=== PATIENT | female | born 1990 | race Caucasian/White ===

== ENCOUNTER 2017-10-29 16:12 | Emergency (ER) | payer OTHER ==
[~2017-10-29] VITALS: Ht 157.4 cm; Wt 112.5 kg
[~2017-10-29 16:12] MED LIST: BACTRIM DS 8001 TA1 PO; CLINDAMYCIN HC300 MG PO; DICLEGIS DR 101 EACH PO; ESCITALOPRAM OX10 MG PO; MACROBID100 M1 PO; MOTRIN600 MG PO; MOTRIN800 MG PO; NKHM; NORMODYNE,TRAN100 MG PO; PRENATAL1 TA1 PO; ZOLOFT50 MG PO
[2017-10-29] MEDS ORDERED: LAMICTAL100 MG PO (16:25)
[2017-10-29] MEDS ORDERED: EFFEXOR XR75 M1 PO (16:25)
[2017-10-29 16:46] LABS: BASO # 0.1 10*3/uL (0.0-0.1); BASO % 0.4 % (0.0-1.0); EOS # 0.2 10*3/uL (0.0-0.4); EOS % 1.5 % (1.0-4.0); HEMATOCRIT 44.5 % (37.0-47.0); LYMPH # 1.3 10*3/uL (1.3-4.4); LYMPH % 10.1 % (27.0-41.0); MEAN CELL VOLUME 87.8 fl (81.0-99.0); MEAN CORPUSCULAR HGB 29.6 pg (27.0-31.0); MEAN CORPUSCULAR HGB CONC 33.7 g/dl (33.0-37.0); MEAN PLATELET VOLUME 11.5 fl (9.6-12.3); MONO # 0.5 10*3/uL (0.1-1.0); MONO % 4.1 % (3.0-9.0); NEUT # 10.7 10*3/uL (2.3-7.9); NEUT % 83.7 % (47.0-73.0); PLATELET COUNT AUTOMATED 285 10*3/uL (130-400); RED BLOOD COUNT 5.07 10*6/uL (4.10-5.10); RED CELL DISTRI WIDTH 13.2 % (0-14.5); WHITE BLOOD COUNT 12.8 10*3/uL (4.8-10.8)
[2017-10-29 17:21] LABS: BILIRUBIN NEGATIVE (NEGATIVE); BLOOD NEGATIVE (NEGATIVE); CLARITY CLEAR (CLEAR); COLOR YELLOW (YELLOW); GLUCOSE NEGATIVE (NEGATIVE); KETONE NEGATIVE (NEGATIVE); LEUKO ESTERASE NEGATIVE (NEGATIVE); NITRITE NEGATIVE (NEGATIVE); SPECIFIC GRAVITY 1.015 (1.005-1.030); UROBILINOGEN 0.2 E.U./dl (0.2-1.0)
[2017-10-29 17:28] LABS: BACTERIA TRACE; EPITHELIAL CELLS 25-30; RBC 0-2 rbc/hpf (0-2); WBC 0-2 wbc/hpf (0-5)
[2017-10-29 17:50] LABS: ALBUMIN 3.5 gm/dl (3.1-4.5); ALKALINE PHOSPHATASE 83 U/L (45-117); BUN 13 mg/dl (7-24); CHLORIDE 105 mmol/L (98-107); CREATININE 0.74 mg/dL (0.55-1.02); LIPASE 136 U/L (73-393); POTASSIUM 3.6 mmol/L (3.5-5.1); SGOT/AST 15 IU/L (3-35); SGPT/ALT 26 U/L (12-78); SODIUM 138 mmol/L (136-145); TOTAL PROTEIN 7.6 gm/dL (6.4-8.2)
[2017-10-29] MEDS ORDERED: ZOFRAN ODT4 MG SL (18:06)
== END 2017-10-29 18:17 | disposition home or self-care (01) ==
LOC: ED 16:12
PROVIDERS: Emergency Medicine; Physician Assistant
DX: K52.9 Noninfective gastroenteritis and colitis, unspecified (principal); R10.13 Epigastric pain; R10.11 Right upper quadrant pain; Z79.899 Other long term (current) drug therapy; Z88.1 Allergy status to other antibiotic agents; Z88.8 Allergy status to other drugs, medicaments and biological substances

== ENCOUNTER → 2018-02-05 | Outpatient (CLI) | payer OTHER ==
[~2018-02-05] MED LIST changes: +BUPROPION SR100 MG PO; +EFFEXOR XR75 M1 PO; +LAMICTAL100 MG PO; +TRILEPTAL300 MG PO; +ZOFRAN ODT4 MG SL
== END | disposition home or self-care (01) ==
LOC: US 01-29 13:00
DX: N93.9 Abnormal uterine and vaginal bleeding, unspecified (principal)

== ENCOUNTER → 2018-06-25 | Outpatient (CLI) | payer OTHER | END | disposition home or self-care (01) | LOC: US 11:48 | DX: Z34.82 Encounter for supervision of other normal pregnancy, second trimester (principal); Z3A.22 22 weeks gestation of pregnancy ==

== ENCOUNTER 2019-03-05 16:49 | Emergency (ER) | payer OTHER ==
[~2019-03-05] VITALS: Ht 157.4 cm; Wt 104.4 kg
[2019-03-05 17:35] LABS: BASO # 0.1 10*3/uL (0.0-0.1); BASO % 0.5 % (0.0-1.0); EOS # 0.6 10*3/uL (0.0-0.4); EOS % 6.3 % (1.0-4.0); HEMOGLOBIN 13.9 g/dl (12.0-16.0); LYMPH # 2.9 10*3/uL (1.3-4.4); LYMPH % 29.3 % (27.0-41.0); MEAN CELL VOLUME 95.8 fl (81.0-99.0); MEAN CORPUSCULAR HGB CONC 32.3 g/dl (33.0-37.0); MEAN PLATELET VOLUME 11.1 fl (9.6-12.3); MONO # 0.5 10*3/uL (0.1-1.0); MONO % 5.3 % (3.0-9.0); NEUT # 5.7 10*3/uL (2.3-7.9); NEUT % 58.3 % (47.0-73.0); PLATELET COUNT AUTOMATED 278 10*3/uL (130-400); RED BLOOD COUNT 4.49 10*6/uL (4.10-5.10); RED CELL DISTRI WIDTH 12.6 % (0-14.5); WHITE BLOOD COUNT 9.8 10*3/uL (4.8-10.8)
[2019-03-05 17:53] LABS: ALBUMIN 3.1 gm/dl (3.1-4.5); ALKALINE PHOSPHATASE 76 U/L (45-117); BUN 9 mg/dl (7-24); CHLORIDE 107 mmol/L (98-107); CREATININE 0.79 mg/dL (0.55-1.02); POTASSIUM 3.7 mmol/L (3.5-5.1); SGOT/AST 11 IU/L (3-35); SGPT/ALT 21 U/L (12-78); SODIUM 138 mmol/L (136-145); TOTAL PROTEIN 7.2 gm/dL (6.4-8.2)
[2019-03-05] MEDS ORDERED: DOXYCYCLINE100 M3 PO (18:18)
[2019-03-05] MEDS ORDERED: IBUPROFEN600 MG PO (18:18)
== END 2019-03-05 19:00 | disposition home or self-care (01) ==
LOC: ED 16:49
PROVIDERS: Physician Assistant
DX: L03.116 Cellulitis of left lower limb (principal); Z79.899 Other long term (current) drug therapy; Z88.1 Allergy status to other antibiotic agents; Z86.14 Personal history of Methicillin resistant Staphylococcus aureus infection

== ENCOUNTER 2019-06-20 18:13 | Emergency (ER) | payer OTHER ==
[~2019-06-20] VITALS: Ht 157.4 cm; Wt 110.7 kg
[~2019-06-20 18:13] MED LIST changes: +DOXYCYCLINE100 M3 PO; +IBUPROFEN600 MG PO
[2019-06-20] MEDS ORDERED: AMOXICILLIN500 M2 PO (19:45)
== END 2019-06-20 19:58 ==
LOC: ED 18:13
DX: J02.0 Streptococcal pharyngitis (principal); I10 Essential (primary) hypertension; Z88.1 Allergy status to other antibiotic agents; Z79.899 Other long term (current) drug therapy

== ENCOUNTER 2020-02-11 21:47 | Emergency (ER) | payer OTHER ==
[~2020-02-11] VITALS: Ht 157.4 cm; Wt 108.9 kg
[~2020-02-11 21:47] MED LIST changes: +AMOXICILLIN500 M2 PO
[2020-02-11] MEDS ORDERED: ARIPIPRAZOLE10 MG PO (21:53)
[2020-02-11] MEDS ORDERED: MIRTAZAPINE7.5 MG PO (21:54)
[2020-02-11] MEDS ORDERED: ESCITALOPRAM OX20 MG PO (21:54)
[2020-02-11 22:20] LABS: CLARITY CLOUDY (CLEAR); COLOR YELLOW (YELLOW)
[2020-02-11 22:22] LABS: BILIRUBIN NEGATIVE (NEGATIVE); BLOOD 3+ (NEGATIVE); GLUCOSE NEGATIVE (NEGATIVE); KETONE NEGATIVE (NEGATIVE); LEUKO ESTERASE 1+ (NEGATIVE); NITRITE NEGATIVE (NEGATIVE); UROBILINOGEN 0.2 E.U./dl (0.2-1.0)
[2020-02-11 22:29] LABS: BACTERIA TRACE; RBC TNTC rbc/hpf (0-2); WBC 16-20 wbc/hpf (0-5); YEAST TRACE
[2020-02-11] MEDS ORDERED: SEPTDS PO (22:36)
[2020-02-11] MEDS ORDERED: DIFLUCAN150 MG PO (22:36)
== END 2020-02-11 22:52 | disposition home or self-care (01) ==
LOC: ED 21:47
PROVIDERS: Nurse Practitioner Family
DX: N39.0 Urinary tract infection, site not specified (principal); I10 Essential (primary) hypertension; F41.9 Anxiety disorder, unspecified; F32.9 Major depressive disorder, single episode, unspecified; Z88.8 Allergy status to other drugs, medicaments and biological substances; Z79.899 Other long term (current) drug therapy

== ENCOUNTER → 2021-04-23 | Outpatient (CLI) | payer OTHER ==
[~2021-04-23] MED LIST changes: +ARIPIPRAZOLE10 MG PO; +DIFLUCAN150 MG PO; +ESCITALOPRAM OX20 MG PO; +MIRTAZAPINE7.5 MG PO; +SEPTDS PO
[2021-04-23 11:15] LABS: BASO # 0.1 10*3/uL (0.0-0.1); BASO % 0.8 % (0.0-1.0); EOS # 0.3 10*3/uL (0.0-0.4); EOS % 2.6 % (1.0-4.0); HEMATOCRIT 45.3 % (37.0-47.0); LYMPH # 3.5 10*3/uL (1.3-4.4); MEAN CELL VOLUME 88.8 fl (81.0-99.0); MEAN CORPUSCULAR HGB 29.2 pg (27.0-31.0); MEAN CORPUSCULAR HGB CONC 32.9 g/dl (33.0-37.0); MEAN PLATELET VOLUME 11.1 fl (9.6-12.3); MONO # 0.4 10*3/uL (0.1-1.0); MONO % 4.2 % (3.0-9.0); NEUT # 5.7 10*3/uL (2.3-7.9); NEUT % 57.1 % (47.0-73.0); PLATELET COUNT AUTOMATED 312 10*3/uL (130-400); RED CELL DISTRI WIDTH 13.1 % (0-14.5)
[2021-04-23 11:32] LABS: ALBUMIN 3.3 gm/dl (3.1-4.5); ALKALINE PHOSPHATASE 89 U/L (45-117); BUN 11 mg/dl (7-24); CHLORIDE 110 mmol/L (98-107); CHOLESTEROL 187 mg/dL (<200); CREATININE 0.75 mg/dL (0.55-1.02); FREE T4 0.86 ng/dl (0.76-1.46); LDL CHOLESTEROL 130 mg/dL (9-159); POTASSIUM 3.8 mmol/L (3.5-5.1); SGOT/AST 13 IU/L (3-35); SGPT/ALT 26 U/L (12-78); SODIUM 138 mmol/L (136-145); T3 UPTAKE 33 % (31-39); TOTAL PROTEIN 7.5 gm/dL (6.4-8.2); TRIGLYCERIDES 98 mg/dl (<150)
== END | disposition home or self-care (01) ==
LOC: LAB 11:01
PROVIDERS: ATTEND Nurse Practitioner Family
DX: Z79.899 Other long term (current) drug therapy (principal)

== ENCOUNTER 2021-08-10 01:52 | Emergency (ER) | payer OTHER ==
[2021-08-10] MEDS ORDERED: METHOCARBAMOL750 M1 PO (02:10)
[2021-08-10] MEDS ORDERED: NAPROXEN250 MG PO (02:10)
== END 2021-08-10 02:19 | disposition home or self-care (01) ==
LOC: ED 01:52
DX: S16.1XXA Strain of muscle, fascia and tendon at neck level, initial encounter (principal); S29.012A Strain of muscle and tendon of back wall of thorax, initial encounter; Z88.1 Allergy status to other antibiotic agents; Z79.899 Other long term (current) drug therapy; X50.9XXA Other and unspecified overexertion or strenuous movements or postures, initial encounter; Y93.89 Activity, other specified; Y92.89 Other specified places as the place of occurrence of the external cause; Y99.8 Other external cause status

== ENCOUNTER 2021-12-11 11:35 | Emergency (ER) | payer OTHER ==
[~2021-12-11] VITALS: Wt 113.4 kg
[~2021-12-11 11:35] MED LIST changes: +METHOCARBAMOL750 M1 PO; +NAPROXEN250 MG PO
[2021-12-11 12:33] LABS: BASO # 0.1 10*3/uL (0.0-0.1); BASO % 0.6 % (0.0-1.0); EOS # 0.4 10*3/uL (0.0-0.4); EOS % 3.9 % (1.0-4.0); HEMATOCRIT 44.9 % (37.0-47.0); LYMPH # 3.3 10*3/uL (1.3-4.4); LYMPH % 32.5 % (27.0-41.0); MEAN CELL VOLUME 87.7 fl (81.0-99.0); MEAN CORPUSCULAR HGB 28.9 pg (27.0-31.0); MEAN PLATELET VOLUME 10.8 fl (9.6-12.3); MONO # 0.6 10*3/uL (0.1-1.0); MONO % 5.8 % (3.0-9.0); NEUT # 5.9 10*3/uL (2.3-7.9); PLATELET COUNT AUTOMATED 321 10*3/uL (130-400); RED BLOOD COUNT 5.12 10*6/uL (4.10-5.10); RED CELL DISTRI WIDTH 12.7 % (0-14.5); WHITE BLOOD COUNT 10.3 10*3/uL (4.8-10.8)
[2021-12-11 13:00] LABS: BUN 8 mg/dl (7-24); CHLORIDE 108 mmol/L (98-107); CREATININE 0.78 mg/dL (0.55-1.02); LIPASE 101 U/L (73-393); POTASSIUM 3.6 mmol/L (3.5-5.1); SGOT/AST 16 IU/L (3-35); SGPT/ALT 26 U/L (12-78); SODIUM 138 mmol/L (136-145); TOTAL PROTEIN 7.1 gm/dL (6.4-8.2)
[2021-12-11 13:01] LABS: ALKALINE PHOSPHATASE 84 U/L (45-117)
[2021-12-11 13:04] LABS: B-hCG (QUALITATIVE) NEGATIVE (NEGATIVE)
== END 2021-12-11 14:59 | disposition home or self-care (01) ==
LOC: ED 11:35
PROVIDERS: Physician Assistant
DX: R07.89 Other chest pain (principal); I10 Essential (primary) hypertension; Z79.899 Other long term (current) drug therapy; Z88.1 Allergy status to other antibiotic agents

== ENCOUNTER 2022-04-07 14:20 | Emergency (ER) | payer OTHER | END 2022-04-07 14:46 | disposition left against medical advice (07) | LOC: ED 14:20 | DX: I10 Essential (primary) hypertension (principal); Z53.21 Procedure and treatment not carried out due to patient leaving prior to being seen by health care provider ==

== ENCOUNTER 2022-04-12 15:10 | Emergency (ER) | payer OTHER ==
[~2022-04-12] VITALS: Ht 157.4 cm; Wt 122.5 kg
[2022-04-12 15:51] LABS: BASO # 0.1 10*3/uL (0.0-0.1); BASO % 0.6 % (0.0-1.0); EOS # 0.4 10*3/uL (0.0-0.4); EOS % 3.6 % (1.0-4.0); HEMATOCRIT 43.1 % (37.0-47.0); LYMPH # 2.9 10*3/uL (1.3-4.4); LYMPH % 28.1 % (27.0-41.0); MEAN CELL VOLUME 90.5 fl (81.0-99.0); MEAN CORPUSCULAR HGB 29.6 pg (27.0-31.0); MEAN CORPUSCULAR HGB CONC 32.7 g/dl (33.0-37.0); MEAN PLATELET VOLUME 11.1 fl (9.6-12.3); MONO # 0.6 10*3/uL (0.1-1.0); MONO % 5.7 % (3.0-9.0); NEUT # 6.3 10*3/uL (2.3-7.9); NEUT % 61.6 % (47.0-73.0); PLATELET COUNT AUTOMATED 299 10*3/uL (130-400); RED BLOOD COUNT 4.76 10*6/uL (4.10-5.10); RED CELL DISTRI WIDTH 13.1 % (0-14.5); WHITE BLOOD COUNT 10.2 10*3/uL (4.8-10.8)
[2022-04-12 16:04] LABS: ACT PARTIAL THROMBO TIME 28.3 SECONDS (20.0-32.1)
[2022-04-12 16:06] LABS: ALKALINE PHOSPHATASE 67 U/L (45-117); BUN 9 mg/dl (7-24); CHLORIDE 108 mmol/L (98-107); CREATININE 0.74 mg/dL (0.55-1.02); POTASSIUM 3.4 mmol/L (3.5-5.1); SGOT/AST 17 IU/L (3-35); SGPT/ALT 29 U/L (12-78); SODIUM 139 mmol/L (136-145); TOTAL PROTEIN 6.9 gm/dL (6.4-8.2)
== END 2022-04-12 17:44 | disposition home or self-care (01) ==
LOC: ED 15:10
PROVIDERS: Family Medicine
DX: O46.91 Antepartum hemorrhage, unspecified, first trimester (principal); I10 Essential (primary) hypertension; Z3A.01 Less than 8 weeks gestation of pregnancy; Z88.1 Allergy status to other antibiotic agents; Z79.899 Other long term (current) drug therapy

== ENCOUNTER 2022-06-01 19:38 | Emergency (ER) | payer OTHER ==
[~2022-06-01] VITALS: Ht 157.4 cm; Wt 120.7 kg
[2022-06-01 20:24] LABS: BASO # 0.1 10*3/uL (0.0-0.1); BASO % 0.5 % (0.0-1.0); EOS # 0.3 10*3/uL (0.0-0.4); EOS % 2.2 % (1.0-4.0); HEMATOCRIT 41.1 % (37.0-47.0); LYMPH % 23.2 % (27.0-41.0); MEAN CELL VOLUME 89.3 fl (81.0-99.0); MEAN CORPUSCULAR HGB 29.8 pg (27.0-31.0); MEAN CORPUSCULAR HGB CONC 33.3 g/dl (33.0-37.0); MEAN PLATELET VOLUME 11.3 fl (9.6-12.3); MONO # 0.6 10*3/uL (0.1-1.0); NEUT # 8.8 10*3/uL (2.3-7.9); NEUT % 68.8 % (47.0-73.0); PLATELET COUNT AUTOMATED 278 10*3/uL (130-400); WHITE BLOOD COUNT 12.7 10*3/uL (4.8-10.8)
== END 2022-06-01 20:28 | disposition left against medical advice (07) ==
LOC: ED 19:38
PROVIDERS: Student in an Organized Health Care Education/Training Program
DX: O26.851 Spotting complicating pregnancy, first trimester (principal); I10 Essential (primary) hypertension; E66.9 Obesity, unspecified; Z3A.13 13 weeks gestation of pregnancy; Z88.1 Allergy status to other antibiotic agents; Z79.899 Other long term (current) drug therapy

== ENCOUNTER → 2022-06-30 | Outpatient (CLI) | payer OTHER | END | disposition home or self-care (01) | LOC: CARD 11:30 | PROVIDERS: ATTEND Internal Medicine | DX: I11.9 Hypertensive heart disease without heart failure (principal) ==

== ENCOUNTER 2022-12-21 21:27 | Emergency (ER) | payer OTHER ==
[~2022-12-21] VITALS: Ht 160 cm; Wt 107.0 kg
[2022-12-21] MEDS ORDERED: NORVASC10 MG PO (21:57)
== END 2022-12-21 22:30 | disposition home or self-care (01) ==
LOC: ED 21:27
DX: I10 Essential (primary) hypertension (principal); F41.9 Anxiety disorder, unspecified; F32.A Depression, unspecified; Z88.8 Allergy status to other drugs, medicaments and biological substances; Z98.890 Other specified postprocedural states

== ENCOUNTER 2023-01-16 10:41 | Emergency (ER) | payer OTHER ==
[~2023-01-16] VITALS: Ht 157.4 cm; Wt 107.5 kg
[~2023-01-16 10:41] MED LIST changes: +NORVASC10 MG PO
[2023-01-16] MEDS ORDERED: NIFEDIPINE ER30 M1 PO (11:28)
[2023-01-16 12:02] LABS: BASO # 0.1 10*3/uL (0.0-0.1); BASO % 0.6 % (0.0-1.0); EOS # 0.4 10*3/uL (0.0-0.4); EOS % 3.6 % (1.0-4.0); HEMATOCRIT 48.4 % (37.0-47.0); LYMPH # 2.7 10*3/uL (1.3-4.4); LYMPH % 26.3 % (27.0-41.0); MEAN CELL VOLUME 88.5 fl (81.0-99.0); MEAN CORPUSCULAR HGB 28.7 pg (27.0-31.0); MEAN CORPUSCULAR HGB CONC 32.4 g/dl (33.0-37.0); MEAN PLATELET VOLUME 11.3 fl (9.6-12.3); MONO # 0.5 10*3/uL (0.1-1.0); MONO % 5.2 % (3.0-9.0); NEUT # 6.5 10*3/uL (2.3-7.9); PLATELET COUNT AUTOMATED 288 10*3/uL (130-400); RED BLOOD COUNT 5.47 10*6/uL (4.10-5.10); RED CELL DISTRI WIDTH 13.4 % (0-14.5); WHITE BLOOD COUNT 10.1 10*3/uL (4.8-10.8)
[2023-01-16 12:13] LABS: ACT PARTIAL THROMBO TIME 28.4 SECONDS (20.0-32.1)
[2023-01-16 12:28] LABS: ALKALINE PHOSPHATASE 113 U/L (46-116); BUN 13 mg/dl (9-23); CHLORIDE 106 mmol/L (98-107); LIPASE 40 U/L (12-53); POTASSIUM 3.7 mmol/L (3.4-5.1); SGPT/ALT 15 U/L (10-49); TOTAL PROTEIN 7.1 gm/dL (6.0-8.0)
[2023-01-16 12:32] LABS: FREE T4 0.94 ng/dl (0.89-1.76)
[2023-01-16 13:10] LABS: BILIRUBIN Negative (Negative); BLOOD Negative (Negative); CLARITY Clear (Clear); COLOR Yellow (Yellow); GLUCOSE Negative (Negative); KETONE Negative (Negative); LEUKO ESTERASE Trace (Negative); NITRITE Negative (Negative); PH 5.5 (4.5-8.0)
[2023-01-16 13:24] LABS: BACTERIA 1+; MUCOUS 1+; RBC 0-2 rbc/hpf (0-2)
== END 2023-01-16 15:19 | disposition home or self-care (01) ==
LOC: ED 10:41
PROVIDERS: Emergency Medicine
DX: O90.89 Other complications of the puerperium, not elsewhere classified (principal); O10.93 Unspecified pre-existing hypertension complicating the puerperium; R63.5 Abnormal weight gain; R07.89 Other chest pain; Z88.1 Allergy status to other antibiotic agents; Z79.899 Other long term (current) drug therapy

== ENCOUNTER 2023-07-18 19:00 | Emergency (ER) | payer OTHER ==
[~2023-07-18] VITALS: Ht 162.5 cm; Wt 113.4 kg
[~2023-07-18 19:00] MED LIST changes: +NIFEDIPINE ER30 M1 PO
[2023-07-18 20:06] LABS: BASO # 0.1 10*3/uL (0.0-0.1); EOS # 0.3 10*3/uL (0.0-0.4); EOS % 4.8 % (1.0-4.0); HEMATOCRIT 43.9 % (37.0-47.0); LYMPH # 2.5 10*3/uL (1.3-4.4); LYMPH % 35.9 % (27.0-41.0); MEAN CELL VOLUME 88.9 fl (81.0-99.0); MEAN CORPUSCULAR HGB 28.9 pg (27.0-31.0); MEAN CORPUSCULAR HGB CONC 32.6 g/dl (33.0-37.0); MEAN PLATELET VOLUME 11.3 fl (9.6-12.3); MONO # 0.6 10*3/uL (0.1-1.0); MONO % 9.2 % (3.0-9.0); NEUT # 3.4 10*3/uL (2.3-7.9); NEUT % 48.8 % (47.0-73.0); PLATELET COUNT AUTOMATED 283 10*3/uL (130-400); RED BLOOD COUNT 4.94 10*6/uL (4.10-5.10); WHITE BLOOD COUNT 6.9 10*3/uL (4.8-10.8)
[2023-07-18 20:28] LABS: ALKALINE PHOSPHATASE 85 U/L (46-116); BUN 12 mg/dl (9-23); CHLORIDE 104 mmol/L (98-107); POTASSIUM 3.4 mmol/L (3.4-5.1); SGPT/ALT 21 U/L (5-49); TOTAL PROTEIN 6.9 gm/dL (6.0-8.0)
[2023-07-18] MEDS ORDERED: PREDNISONE50 MG PO (21:10)
[2023-07-18] MEDS ORDERED: ZITHROMAX250 MG PO (21:10)
== END 2023-07-18 21:22 | disposition home or self-care (01) ==
LOC: ED 19:00
PROVIDERS: Nurse Practitioner Family
DX: J40 Bronchitis, not specified as acute or chronic (principal); Z20.822 Contact with and (suspected) exposure to COVID-19; Z88.1 Allergy status to other antibiotic agents; Z79.899 Other long term (current) drug therapy; Z98.890 Other specified postprocedural states

== ENCOUNTER 2023-11-21 21:58 | Emergency (ER) | payer OTHER ==
[~2023-11-21] VITALS: Ht 157.4 cm; Wt 122.5 kg
[~2023-11-21 21:58] MED LIST changes: +PREDNISONE50 MG PO; +ZITHROMAX250 MG PO
[2023-11-21 22:51] LABS: BASO # 0.1 10*3/uL (0.0-0.1); BASO % 0.6 % (0.0-1.0); EOS # 0.3 10*3/uL (0.0-0.4); EOS % 3.9 % (1.0-4.0); HEMATOCRIT 43.9 % (37.0-47.0); LYMPH # 2.9 10*3/uL (1.3-4.4); LYMPH % 33.5 % (27.0-41.0); MEAN CORPUSCULAR HGB 28.3 pg (27.0-31.0); MEAN CORPUSCULAR HGB CONC 31.4 g/dl (33.0-37.0); MEAN PLATELET VOLUME 11.5 fl (9.6-12.3); MONO # 0.6 10*3/uL (0.1-1.0); NEUT # 4.8 10*3/uL (2.3-7.9); NEUT % 54.8 % (47.0-73.0); PLATELET COUNT AUTOMATED 295 10*3/uL (130-400); RED BLOOD COUNT 4.88 10*6/uL (4.10-5.10); RED CELL DISTRI WIDTH 13.1 % (0-14.5); WHITE BLOOD COUNT 8.7 10*3/uL (4.8-10.8)
[2023-11-21 23:20] LABS: ALKALINE PHOSPHATASE 75 U/L (46-116); BUN 9 mg/dl (9-23); CHLORIDE 105 mmol/L (98-107); POTASSIUM 3.3 mmol/L (3.4-5.1); SGPT/ALT 18 U/L (5-49); TOTAL PROTEIN 6.4 gm/dL (6.0-8.0)
[2023-11-22] MEDS ORDERED: KATERZIA1 MG/1 ML PO (01:50)
[2023-11-22] MEDS ORDERED: POTASSIUM CHLORIDE 20 MEQ TAB PO ONE (01:55)
[2023-11-22] MEDS ORDERED: amLODIPine besylate 5 MG TAB PO ONE (01:55)
== END 2023-11-22 02:16 | disposition home or self-care (01) ==
LOC: ED 21:58
PROVIDERS: Emergency Medicine
DX: R07.89 Other chest pain (principal); I10 Essential (primary) hypertension; E87.6 Hypokalemia; F41.9 Anxiety disorder, unspecified; F32.A Depression, unspecified; Z88.8 Allergy status to other drugs, medicaments and biological substances; Z98.890 Other specified postprocedural states

== ENCOUNTER 2024-02-26 09:09 | Emergency (ER) | payer OTHER ==
[~2024-02-26] VITALS: Ht 157.4 cm; Wt 124.7 kg
[~2024-02-26 09:09] MED LIST changes: +KATERZIA1 MG/1 ML PO
[2024-02-26] MEDS ORDERED: MELOXICAM15 MG PO (09:25)
[2024-02-26] MEDS ORDERED: AMOX-CLAV 875-1 EACH PO (09:25)
== END 2024-02-26 09:38 | disposition home or self-care (01) ==
LOC: ED 09:09
DX: K02.9 Dental caries, unspecified (principal); K04.7 Periapical abscess without sinus; F41.9 Anxiety disorder, unspecified; I10 Essential (primary) hypertension; F32.A Depression, unspecified; Z88.8 Allergy status to other drugs, medicaments and biological substances; Z98.890 Other specified postprocedural states

== ENCOUNTER 2024-05-02 21:02 | Emergency (ER) | payer OTHER ==
[~2024-05-02] VITALS: Ht 157.4 cm; Wt 124.7 kg
[~2024-05-02 21:02] MED LIST changes: +AMOX-CLAV 875-1 EACH PO; +MELOXICAM15 MG PO
[2024-05-02] MEDS ORDERED: Lopressor25 MG PO (21:26)
== END 2024-05-03 00:20 | disposition home or self-care (01) ==
LOC: ED 21:02
DX: J06.9 Acute upper respiratory infection, unspecified (principal); Z20.822 Contact with and (suspected) exposure to COVID-19; F41.9 Anxiety disorder, unspecified; I10 Essential (primary) hypertension; F32.A Depression, unspecified; Z88.8 Allergy status to other drugs, medicaments and biological substances; Z98.890 Other specified postprocedural states

== ENCOUNTER 2024-10-20 20:17 | Emergency (ER) | payer OTHER ==
[~2024-10-20] VITALS: Ht 157.4 cm; Wt 126.1 kg
[~2024-10-20 20:17] MED LIST changes: +Lopressor25 MG PO
[2024-10-20] MEDS ORDERED: FLUOXETINE40 MG PO (20:30)
[2024-10-20] MEDS ORDERED: PROPRANOLOL HCL40 MG PO (20:30)
[2024-10-20] MEDS ORDERED: AMLODIPINE BESY10 MG PO (20:31)
[2024-10-20] MEDS ORDERED: BUSPIRONE15 MG PO (20:31)
[2024-10-20 20:53] LABS: BASO # 0.1 10*3/uL (0.0-0.1); BASO % 0.7 % (0.0-1.0); EOS # 0.4 10*3/uL (0.0-0.4); MEAN CELL VOLUME 89.2 fl (81.0-99.0); MEAN CORPUSCULAR HGB CONC 32.5 g/dl (33.0-37.0); MEAN PLATELET VOLUME 11.3 fl (9.6-12.3); MONO # 0.7 10*3/uL (0.1-1.0); MONO % 5.7 % (3.0-9.0); NEUT # 7.4 10*3/uL (2.3-7.9); NEUT % 60.8 % (47.0-73.0); PLATELET COUNT AUTOMATED 307 10*3/uL (130-400); RED BLOOD COUNT 4.93 10*6/uL (4.10-5.10); RED CELL DISTRI WIDTH 13.1 % (0-14.5); WHITE BLOOD COUNT 12.2 10*3/uL (4.8-10.8)
[2024-10-20 21:08] LABS: BUN 10 mg/dl (9-23); CHLORIDE 104 mmol/L (98-107); POTASSIUM 3.4 mmol/L (3.4-5.1)
== END 2024-10-20 21:23 | disposition home or self-care (01) ==
LOC: ED 20:17
PROVIDERS: Physician Assistant Medical
DX: R00.2 Palpitations (principal); T43.225A Adverse effect of selective serotonin reuptake inhibitors, initial encounter; T43.595A Adverse effect of other antipsychotics and neuroleptics, initial encounter; T44.7X5A Adverse effect of beta-adrenoreceptor antagonists, initial encounter; F90.9 Attention-deficit hyperactivity disorder, unspecified type; F32.A Depression, unspecified; I10 Essential (primary) hypertension; Z88.1 Allergy status to other antibiotic agents; Z79.899 Other long term (current) drug therapy; Y92.89 Other specified places as the place of occurrence of the external cause

== ENCOUNTER 2024-11-06 22:37 | Emergency (ER) | payer OTHER ==
[~2024-11-06] VITALS: Ht 157.4 cm; Wt 124.7 kg
[~2024-11-06 22:37] MED LIST changes: +AMLODIPINE BESY10 MG PO; +BUSPIRONE15 MG PO; +FLUOXETINE40 MG PO; +PROPRANOLOL HCL40 MG PO
[2024-11-06 23:22] LABS: BASO # 0.1 10*3/uL (0.0-0.1); BASO % 0.7 % (0.0-1.0); EOS # 0.5 10*3/uL (0.0-0.4); EOS % 4.3 % (1.0-4.0); HEMATOCRIT 44.3 % (37.0-47.0); MEAN CELL VOLUME 88.1 fl (81.0-99.0); MEAN CORPUSCULAR HGB 29.2 pg (27.0-31.0); MEAN CORPUSCULAR HGB CONC 33.2 g/dl (33.0-37.0); MEAN PLATELET VOLUME 11.1 fl (9.6-12.3); MONO # 0.6 10*3/uL (0.1-1.0); MONO % 5.1 % (3.0-9.0); PLATELET COUNT AUTOMATED 327 10*3/uL (130-400); RED BLOOD COUNT 5.03 10*6/uL (4.10-5.10); RED CELL DISTRI WIDTH 12.8 % (0-14.5); WHITE BLOOD COUNT 10.9 10*3/uL (4.8-10.8)
[2024-11-06 23:40] LABS: BUN 9 mg/dl (9-23); CHLORIDE 103 mmol/L (98-107)
[2024-11-06] MEDS ORDERED: POTASSIUM CHLORIDE 20 MEQ TAB PO ONE (23:45)
== END 2024-11-07 00:33 | disposition home or self-care (01) ==
LOC: ED 22:37
PROVIDERS: Internal Medicine
DX: R07.89 Other chest pain (principal); E87.6 Hypokalemia; R06.02 Shortness of breath; R11.0 Nausea; Z88.1 Allergy status to other antibiotic agents; Z79.899 Other long term (current) drug therapy; Z98.890 Other specified postprocedural states

== ENCOUNTER 2025-03-11 20:14 | Emergency (ER) | payer OTHER ==
[2025-03-11 20:46] LABS: BILIRUBIN Negative (Negative); BLOOD Negative (Negative); CLARITY Cloudy (Clear); COLOR Yellow (Yellow); KETONE Trace (Negative); LEUKO ESTERASE Negative (Negative); NITRITE Negative (Negative); PH 5.5 (4.5-8.0); SPECIFIC GRAVITY >= 1.030 (1.001-1.030); UROBILINOGEN 1.0 E.U./dl (0.0-1.0)
[2025-03-11 20:54] LABS: MUCOUS 1+
== END 2025-03-12 00:10 | disposition home or self-care (01) ==
LOC: ED 20:14
PROVIDERS: Internal Medicine
DX: K59.00 Constipation, unspecified (principal); N20.0 Calculus of kidney; R14.1 Gas pain; Z88.1 Allergy status to other antibiotic agents; Z79.899 Other long term (current) drug therapy; Z98.890 Other specified postprocedural states